=== PATIENT | female | born 1970 | race American Indian/Alaskan Native ===

== ENCOUNTER 2020-09-23 16:04 | Emergency (ER) | payer MEDICAID ==
--- NOTE | 2020-09-23 17:46 | Event Note ---
ED Screening Note ED Screening Note: Patient is a 50-year-old female presents emergency room with complaints of shortness of breath, abdominal pain, nausea, vomiting, diarrhea She states that she has been seen at [facility] twice she reports she had a negative COVID test she reports that she was "smoking crack all last night" This initial assessment/diagnostic orders/clinical plan/treatment(s) is/are subject to change based on patients health status, clinical progression and re- assessment by fellow clinical providers in the ED. Further treatment and workup at subsequent clinical providers discretion. Patient/guardian urged not to elope from the ED as their condition may be serious if not clinically assessed and managed. Initial orders include: Labs, EKG, x-ray, urine
--- NOTE | 2020-09-23 18:23 | XRay Report ---
CHEST 2 VIEWS INDICATION / CLINICAL INFORMATION: SOB. COMPARISON: None available. FINDINGS: SUPPORT DEVICES: None. HEART / MEDIASTINUM: No significant abnormality. LUNGS / PLEURA: No significant pulmonary or pleural abnormality. No pneumothorax. ADDITIONAL FINDINGS: No significant additional findings. IMPRESSION: 1. No acute findings. Signer Name: Kell Coleman MD Signed: 09/23/2020 6:19 PM Workstation Name: [id number]
[2020-09-23 18:32] LABS: Basophils # (Auto) 0.2 K/mm3 (0.0-0.1); Basophils % (Auto) 1.5 % (0.0-1.8); Eosinophils % (Auto) 0.3 % (0.0-4.3); Hematocrit 39.6 % (30.3-42.9); Hemoglobin 13.2 gm/dl (10.1-14.3); Lymphocytes # (Auto) 2.6 K/mm3 (1.2-5.4); Lymphocytes % (Auto) 16.1 % (13.4-35.0); Mean Corpuscular HGB Conc 33 % (30-34); Mean Corpuscular Volume 90 fl (79-97); Monocytes % (Auto) 6.2 % (0.0-7.3); Platelet Count 382 K/mm3 (140-440); Red Blood Count 4.42 M/mm3 (3.65-5.03); Red Cell Distribution Width 17.1 % (13.2-15.2)
[2020-09-23 18:55] LABS: Alanine Aminotransferase 19 units/L (7-56); Albumin 4.5 g/dL (3.9-5); BUN/Creatinine Ratio 13; Blood Urea Nitrogen 15 mg/dL (7-17); Calcium 9.9 mg/dL (8.4-10.2); Hemolysis Index 9
[2020-09-23 19:03] LABS: Bilirubin,Urine NEG (Negative); Blood,Urine MOD (Negative); Color,Urine Yellow (Yellow); Mucus,Urine FEW /HPF
[2020-09-23 19:04] LABS: Protein,Urine >500 mg/dL (Negative)
[2020-09-23] MEDS ORDERED: KETOROLAC 30 MG/1 ML INJ IV ONE (20:09)
[2020-09-23] MEDS ORDERED: SODIUM CHLORIDE 0.9% 1000 ML 1,000 ML IV ONE (20:09)
[2020-09-23] MEDS ORDERED: ONDANSETRON 4 MG/2 ML INJ IV ONE (20:09)
--- NOTE | 2020-09-23 20:41 | Emergency Department Report ---
ED General Adult HPI - General Chief complaint: Dyspnea/Respdistress Stated complaint: TIRED Time Seen by Provider: 09/23/20 17:43 Source: patient, EMS Mode of arrival: Stretcher Limitations: No Limitations - History of Present Illness Initial comments: Patient is a 50-year-old female who presents to emergency room with complaints of shortness of breath, abdominal pain, nausea, vomiting, diarrhea. She was diagnoseed with bronchitis at [facility], and tx'd for same. States could not afford inhaler. She states that she has been seen at [facility] twice, last time 3 days ago, she reports she had a negative COVID test 3 days ago , she reports that she was "smoking crack all last night". Symptoms at this time include Abd and flank pain, nausea and vomiting, last po intake was 4 hours ago without n/v. pt denies cp, no dizziness or light headedness, states intermittent sob, there is no wheezing or sob at this time. - Related Data Home Medications Medication Instructions Recorded Confirmed Last Taken Amitriptyline HCl 50 mg PO HS 12/29/17 12/29/17 Unknown Aspirin 325 mg PO DAILY 12/29/17 12/29/17 Unknown AtorvaSTATin 80 mg PO DAILY 12/29/17 12/29/17 Unknown Omeprazole 200 mg PO DAILY 12/29/17 12/29/17 Unknown Topiramate 100 mg PO DAILY 12/29/17 12/29/17 Unknown Venlafaxine HCl 150 mg PO DAILY 12/29/17 12/29/17 Unknown Ziprasidone HCl 60 mg PO DAILY 12/29/17 12/29/17 Unknown Previous Rx's Medication Instructions Recorded Last Taken Type Ondansetron [Zofran Odt] 4 mg PO Q8HR PRN #12 tab.rapdis 09/23/20 Unknown Rx Allergies Allergy/AdvReac Type Severity Reaction Status Date / Time Penicillins Allergy Swelling Verified 12/29/17 17:22 ED Review of Systems ROS: Stated complaint: TIRED Other details as noted in HPI Constitutional: malaise. denies: chills, fever Eyes: denies: eye pain, eye discharge, vision change ENT: congestion. denies: ear pain, throat pain Respiratory: cough, shortness of breath. denies: wheezing Cardiovascular: denies: chest pain, palpitations, dyspnea on exertion, orthopnea, edema, syncope, paroxysmal nocturnal dyspnea Endocrine: no symptoms reported Gastrointestinal: abdominal pain, nausea, vomiting, diarrhea. denies: constipation, melena Genitourinary: frequency. denies: urgency, dysuria, hematuria, discharge Musculoskeletal: back pain (left flank ) Skin: denies: rash, lesions Neurological: denies: headache, weakness, paresthesias, vertigo Psychiatric: denies: anxiety, depression Hematological/Lymphatic: denies: easy bleeding, easy bruising ED Past Medical Hx - Past Medical History Previous Medical History?: Yes Hx Hypertension: Yes Hx Congestive Heart Failure: Yes Hx Asthma: Yes Additional medical history: high cholestrol - Surgical History Past Surgical History?: Yes Additional Surgical History: back surgery. bilateral foot sugery- bunion removal surgery. hernia repair - Social History Smoking Status: Current Every Day Smoker Substance Use Type: None - Medications Home Medications: Home Medications Medication Instructions Recorded Confirmed Last Taken Type Amitriptyline HCl 50 mg PO HS 12/29/17 12/29/17 Unknown History Aspirin 325 mg PO DAILY 12/29/17 12/29/17 Unknown History AtorvaSTATin 80 mg PO DAILY 12/29/17 12/29/17 Unknown History Omeprazole 200 mg PO DAILY 12/29/17 12/29/17 Unknown History Topiramate 100 mg PO DAILY 12/29/17 12/29/17 Unknown History Venlafaxine HCl 150 mg PO DAILY 12/29/17 12/29/17 Unknown History Ziprasidone HCl 60 mg PO DAILY 12/29/17 12/29/17 Unknown History Ondansetron [Zofran Odt] 4 mg PO Q8HR PRN #12 tab.rapdis 09/23/20 Unknown Rx ED Physical Exam - General Limitations: No Limitations General appearance: alert, in no apparent distress - Head Head exam: Present: normocephalic, normal inspection - Eye Eye exam: Present: normal appearance, PERRL, EOMI Pupils: Present: normal accommodation - ENT ENT exam: Present: mucous membranes moist - Neck Neck exam: Present: normal inspection, full ROM. Absent: tenderness, lympha denopathy, thyromegaly - Respiratory Respiratory exam: Present: normal lung sounds bilaterally. Absent: respiratory distress, wheezes, rales, rhonchi, stridor, chest wall tenderness - Cardiovascular Cardiovascular Exam: Present: regular rate, normal rhythm, normal heart sounds - GI/Abdominal GI/Abdominal exam: Present: soft, tenderness (left flank ), normal bowel sounds. Absent: distended, guarding, rebound, rigid, bruit, hernia - Rectal Rectal exam: Present: deferred - Extremities Exam Extremities exam: Present: normal inspection, full ROM, normal capillary refill. Absent: tenderness - Back Exam Back exam: Present: normal inspection, full ROM, CVA tenderness (L). Absent: CVA tenderness (R) - Neurological Exam Neurological exam: Present: alert, oriented X3, CN II-XII intact, normal gait - Expanded Neurological Exam Expanded Patient oriented to: Present: person, place, time Best Eye Response (Godfrey): (4) open spontaneously Best Motor Response (Godfrey): (6) obeys commands Best Verbal Response (Godfrey): (5) oriented Godfrey Total: 15 - Psychiatric Psychiatric exam: Present: normal affect, normal mood - Skin Skin exam: Present: warm, dry, intact, normal color. Absent: rash ED Course Vital Signs 09/23/20 09/23/20 17:37 21:42 Temperature 98.3 F Pulse Rate 121 H 94 H Respiratory 22 17 Rate Blood Pressure 184/106 172/90 [Right] O2 Sat by Pulse 100 100 Oximetry ED Medical Decision Making - Lab Data Result diagrams: 09/23/20 18:08 09/23/20 18:08 Labs 09/23/20 09/23/20 09/23/20 18:08 18:08 18:54 WBC 16.0 H RBC 4.42 Hgb 13.2 Hct 39.6 MCV 90 MCH 30 MCHC 33 RDW 17.1 H Plt Count 382 Lymph % (Auto) 16.1 [place] % (Auto) 6.2 Eos % (Auto) 0.3 Baso % (Auto) 1.5 Lymph # (Auto) 2.6 [place] # (Auto) 1.0 H Eos # (Auto) 0.0 Baso # (Auto) 0.2 H Seg Neutrophils % 75.9 H Seg Neutrophils # 12.1 H Sodium 138 Potassium 3.6 Chloride 98.4 Carbon Dioxide 17 L Anion Gap 26 BUN 15 Creatinine 1.2 Estimated GFR 57 BUN/Creatinine Ratio 13 Glucose 76 Calcium 9.9 Total Bilirubin 0.70 AST 35 ALT 19 Alkaline Phosphatase 124 Troponin T < 0.010 NT-Pro-B Natriuret Pep 44.41 Total Protein 7.5 Albumin 4.5 Albumin/Globulin Ratio 1.5 Lipase 71 H Urine Color Yellow Urine Turbidity Clear Urine pH 5.0 Ur Specific Burt 1.024 Urine Protein >500 Urine Glucose (UA) Neg Urine Ketones 20 Urine Blood Mod Urine Nitrite Neg Urine Bilirubin Neg Urine Urobilinogen 2.0 Ur Leukocyte Esterase Neg Urine WBC (Auto) 1.0 Urine RBC (Auto) 2.0 U Epithel Cells (Auto) 2.0 Urine Mucus Few 09/23/20 20:50 WBC RBC Hgb Hct MCV MCH MCHC RDW Plt Count Lymph % (Auto) [place] % (Auto) Eos % (Auto) Baso % (Auto) Lymph # (Auto) [place] # (Auto) Eos # (Auto) Baso # (Auto) Seg Neutrophils % Seg Neutrophils # Sodium Potassium Chloride Carbon Dioxide Anion Gap BUN Creatinine Estimated GFR BUN/Creatinine Ratio Glucose Calcium Total Bilirubin AST ALT Alkaline Phosphatase Troponin T < 0.010 NT-Pro-B Natriuret Pep Total Protein Albumin Albumin/Globulin Ratio Lipase Urine Color Urine Turbidity Urine pH Ur Specific Burt Urine Protein Urine Glucose (UA) Urine Ketones Urine Blood Urine Nitrite Urine Bilirubin Urine Urobilinogen Ur Leukocyte Esterase Urine WBC (Auto) Urine RBC (Auto) U Epithel Cells (Auto) Urine Mucus - EKG Data EKG shows normal: sinus rhythm Rate: tachycardia - EKG Data Interpretation: nonspecific ST-T wave beth (Sinus tach 103, No STEMI, ekg interp by ED Atteding ) - Radiology Data Radiology results: report reviewed, image reviewed CHEST 2 VIEWS INDICATION / CLINICAL INFORMATION: SOB. COMPARISON: None available. FINDINGS: SUPPORT DEVICES: None. HEART / MEDIASTINUM: No significant abnormality. LUNGS / PLEURA: No significant pulmonary or pleural abnormality. No pneumothorax. ADDITIONAL FINDINGS: No significant additional findings. IMPRESSION: 1. No acute findings. Signer Name: Kell Coleman MD Signed: 09/23/2020 6:19 PM Workstation Name: [id number] Transcribed By: Dictated By: Kell Coleman MD Electronically Authenticated By: Kell Coleman MD Signed Date/Time: 09/23/201818 DD/ 17 TD/TT: CT ABDOMEN AND PELVIS WITHOUT CONTRAST HISTORY: flank pain. COMPARISON: None. TECHNIQUE: CT images of the abdomen and pelvis were obtained without administration of intravenous contrast. All CT scans at this location are performed using CT dose reduction for ALARA by means of automated exposure control. FINDINGS: Lungs/bones: Lung bases are clear. There are degenerative and postoperative changes in the spine as well as degenerative changes in the pelvis. No acute osseous abnormality. Abdomen/pelvis: The liver, gallbladder, spleen, pancreas, adrenals, kidneys, and proximal GI tract appear unremarkable. Urinary bladder is mostly collapsed but otherwise unremarkable. Uterus is surgically absent. No pelvic free fluid or acute colonic abnormality identified. The appendix is normal. Terminal ileum is also normal. IMPRESSION: 1. No acute abnormality identified. Signer Name: Wilman Jones MD Signed: 09/23/2020 9:10 PM Workstation Name: [id number] Transcribed By: FABRICIO Dictated By: Wilman Jones MD Electronically Authenticated By: Wilman Jones MD Signed Date/Time: 09/23/202109 DD/ 07 TD/TT: - Medical Decision Making Symptoms are improved, abdominal pain is resolved. Patient is currently tolerating p.o. intake at this time without nausea or vomiting. There is no fever or chills. Chest x-ray is normal no infiltrates no opacities, CT abdomen pelvis no stones no mass no bleed no abnormalities. Troponins less than 0.01x2, EKG sinus rhythm no ST elevated [place]. There is no headache, dizziness, lightheadedness, no shortness of breath, no hemoptysis, no chest pain no diaphoresis. Plan DC to home, Zofran as needed, stop polysubstance abuse. Follow-up with primary care doctor in 2 to 3 days. Patient given referral to [facility]. Patient be DC'd to home in stable condition at this time. Critical care attestation.: If time is entered above; I have spent that time in minutes in the direct care of this critically ill patient, excluding procedure time. ED Disposition Clinical Impression: Substance abuse Abdominal pain Qualifiers: Abdominal location: left upper quadrant Qualified Code(s): R10.12 - Left upper quadrant pain Disposition: DC-01 TO HOME OR SELFCARE Is pt being admited?: No Does the pt Need Aspirin: No Condition: Stable Instructions: Substance Use Disorder and Mental Illness, Abdominal Pain, Adult, [id number] Additional Instructions: Take medications as prescribed, Stop Crack Cocaine, follow up with your doctor in 2-3 days, return to emergency if symptoms worsen. Prescriptions: Ondansetron [Zofran Odt] 4 mg PO Q8HR PRN #12 tab.rapdis PRN Reason: Nausea And Vomiting Referrals: JIMBO ACE MD [Staff Physician] - 3-5 Days Forms: Work/School Release Form(ED) Time of Disposition: 22:36
--- NOTE | 2020-09-23 21:15 | Cat Scan Report ---
CT ABDOMEN AND PELVIS WITHOUT CONTRAST HISTORY: flank pain. COMPARISON: None. TECHNIQUE: CT images of the abdomen and pelvis were obtained without administration of intravenous co ntrast. All CT scans at this location are performed using CT dose reduction for ALARA by means of au tomated exposure control. FINDINGS: Lungs/bones: Lung bases are clear. There are degenerative and postoperative changes in the spine as well as degenerative changes in the pelvis. No acute osseous abnormality. Abdomen/pelvis: The liver, gallbladder, spleen, pancreas, adrenals, kidneys, and proximal GI tract a ppear unremarkable. Urinary bladder is mostly collapsed but otherwise unremarkable. Uterus is surgically absent. No pelvi c free fluid or acute colonic abnormality identified. The appendix is normal. Terminal ileum is also normal. IMPRESSION: 1. No acute abnormality identified. Signer Name: Wilman Jones MD Signed: 09/23/2020 9:10 PM Workstation Name: [id number]
[2020-09-23 21:43] VITALS: BP 172/90
--- NOTE | 2020-09-25 10:55 | Electrocardiograph Report ---
[facility] Test Date: 2020-09-23 Test Time: 22:22:56 Pat Name: MEGAN SHERMAN Department: Room: Gender: F [employer] Worker: [place] : [id number] Requested By: RAAD PEREZ Order Number: [id number] Reading MD: Nahid Dunaway Measurements Intervals [place] Rate: 103 P: 82 MT: 158 QRS: 77 QRSD: 97 T: 64 QT: 392 QTc: 513 Interpretive Statements Sinus tachycardia Biatrial enlargement Probable left ventricular hypertrophy Prolonged QT interval No previous ECG available for comparison Electronically Signed On 09-25-2020 10:55:19 EDT by Nahid Dunaway
== END 2020-09-23 22:40 | disposition home or self-care (01) ==
LOC: EDBD → ED 16:04
DX: R10.12 Left upper quadrant pain (principal); I11.0 Hypertensive heart disease with heart failure; J45.909 Unspecified asthma, uncomplicated; E78.00 Pure hypercholesterolemia, unspecified; Z98.890 Other specified postprocedural states; F17.200 Nicotine dependence, unspecified, uncomplicated
CPT/HCPCS: 36415; 71046; 74176; 80053; 81001; 83690; 83880; 84484; 85025; 93005; 96361; 96374; 96375; 99285; J1885; J2405; J7030

== ENCOUNTER 2020-09-24 09:23 | Emergency (ER) | payer MEDICAID ==
[2020-09-24 15:46] VITALS: BP 167/101
== END 2020-09-25 00:03 | disposition left against medical advice (07) ==
LOC: ED 09:23
DX: Z00.00 Encounter for general adult medical examination without abnormal findings (principal); Z53.21 Procedure and treatment not carried out due to patient leaving prior to being seen by health care provider